=== PATIENT | female | born 2000 | race American Indian/Alaskan Native ===

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

== ENCOUNTER 2018-05-06 07:30 | Emergency (ER) | payer MEDICAID, OTHER ==
[2018-05-06] MEDS ORDERED: MVI, Adult with Vitamin K 10 ML, Folic Acid 1 MG, Thiamine 100 MG in Lactated Ringers 1... IV ONE ×4 (07:39)
[2018-05-06] MEDS ORDERED: Sodium Chloride 0.9% 10 ML Syringe FLUSH PRN (07:39)
[2018-05-06 07:41] VITALS: BP 138/90
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
[2018-05-06 08:20] LABS: ANION GAP 15.4; CHLORIDE,CL 103 mmol/L (101-111); SODIUM,NA 139 mmol/L (135-145)
== END 2018-05-06 09:51 ==
LOC: DL.ED 07:30
DX: S40.011A Contusion of right shoulder, initial encounter (principal); S40.021A Contusion of right upper arm, initial encounter; F10.129 Alcohol abuse with intoxication, unspecified; Y04.2XXA Assault by strike against or bumped into by another person, initial encounter
CPT/HCPCS: 36415; 70450; 80053; 80305; 81001; 81025; 85025; 96360; 99283; G0480; J3411; J7050; J7120; J3490

== ENCOUNTER 2020-10-11 00:33 | Inpatient (IN) | payer MEDICAID ==
[2020-10-11] MEDS ORDERED: Lactated Ringers 1,000 ML IV SCH (00:45)
[2020-10-11] MEDS: Oxytocin/Normal Saline 30 UNIT/500 ML BAG IV SCH ×2 (00:51→02:13)
[2020-10-11] MEDS ORDERED: Tranexamic Acid 1,000 MG in Sodium Chloride 0.9% 100 ML IV PRN (01:18)
[2020-10-11] MEDS ORDERED: Simethicone 80 MG Tab.Chew PO PRN (01:18)
[2020-10-11] MEDS ORDERED: Benzocaine/Menthol 20%-0.5% Spray 56 GM Canister TOP PRN (01:18)
[2020-10-11] MEDS ORDERED: Oxytocin 10 Units/1 ML SDV IM PRN (01:18)
[2020-10-11] MEDS ORDERED: Carboprost Tromethamine 250 MCG/1 ML Amp IM PRN (01:18)
[2020-10-11] MEDS ORDERED: Misoprostol 400 MCG (4 X 100 MCG TAB) RECTAL PRN (01:18)
[2020-10-11] MEDS ORDERED: Zolpidem 5 MG Tab PO PRN (01:18)
[2020-10-11] MEDS ORDERED: Sodium Chloride 0.9% 10 ML Syringe FLUSH PRN (01:18)
[2020-10-11] MEDS ORDERED: Oxytocin 10 Units/1 ML SDV ONE (01:25)
[2020-10-11] MEDS: Ibuprofen 800 MG Tab PO PRN ×2 (02:08→17:24)
[2020-10-11] MEDS: Ferrous Sulfate 325 MG Tab PO SCH (09:22)
[2020-10-11] MEDS: Docusate Sodium 100 MG Cap PO PRN ×2 (09:22→21:22)
[2020-10-11] MEDS: Prenatal Multivitamin with Calcium/Folic Acid/Iron Tab PO SCH (09:23)
[2020-10-11] MEDS: Acetaminophen 325 MG Tab PO PRN ×2 (09:23→21:22)
--- NOTE | 2020-10-11 12:33 | PN ---
DATE: 10/11/2020 day #0. SUBJECTIVE: Patient is tolerating p.o., was ambulating, urinating, passing flatus. States her bleeding has improved. She did receive a dose of Cytotec 800 mcg rectally shortly after delivery. Please see nurse's note in regard this. This was due to increased bleeding, since then bleeding has significantly decreased. OBJECTIVE: Vital Signs: Temperature 99, heart rate 100, blood pressure 122/79, and respiratory rate 18. Lungs: Clear to auscultation bilaterally. Heart: S1, S2. Regular rate and rhythm. Pelvic: Firm uterus felt at the umbilicus. No peripheral edema. No calf pain. LABORATORY DATA: Pending is a CBC. Urine drug screen returned earlier this morning, positive for amphetamine, methamphetamine, and THC. ASSESSMENT/PLAN: 1. day #0 status post spontaneous vaginal delivery that was precipitous in the ER. 2. Limited/insufficient care. 3. Positive chlamydia, treated on 09/30/2020. 4. History urinary tract infection in the , treated on 09/30/2020 with Keflex. 5. Impaired glucose tolerance. No signs and symptoms of diabetes at this point in time. 6. Positive urine drug screen for methamphetamine, amphetamine, and THC. PLAN: We will continue to follow clinically and closely at this point in time. Possible discharge tomorrow. Wet End Supervisor will be counseled. MODL /[id number]
[2020-10-12] MEDS: Ibuprofen 800 MG Tab PO PRN (07:23)
[2020-10-12] MEDS: Prenatal Multivitamin with Calcium/Folic Acid/Iron Tab PO SCH (07:24)
[2020-10-12] MEDS: Ferrous Sulfate 325 MG Tab PO SCH (07:24)
[2020-10-12 07:49] VITALS: BP 125/72; PULSE 65
--- NOTE | 2020-10-12 09:31 | HP ---
PATIENT IDENTIFICATION: Deisy Knutson a 20-year-old, -0-0-3, now - 0-0-4, came in, intrauterine at 37-5/7 weeks by 36-1/7 weeks with active labor and precipitous delivery noted in the ER by OB nurse. HISTORY OF PRESENT ILLNESS: The patient states on the late evening of 10/10/2020, a day prior to admission, around 7 p.m., she started having contractions that got stronger around 10 p.m. to 11 p.m., felt in the lower abdomen. Getting stronger, more frequent, and nothing seemed to make them better and pain made them worse. She is unsure when her water broke. She presented to the ER and was delivered by a nurse in the ER room with a vertex presentation with a loose nuchal cord noted. Upon my presentation to the hospital, the patient was being wheeled to the OB floor and subsequently delivery of placenta was done as below. The patient notes that she has not had much for care. She does state she is clean of drugs, however. Records were called for, reviewed as below, and supplemented by patient history. OBSTETRICAL HISTORY: 1. 01/02/2015, 38-3/7 weeks, delivered a male 7 pounds 2.5 ounces. 2. 01/18/2016, 40 weeks, delivered a male 7 pounds 14 ounces. Received iron transfusions during the . 3. 07/20/2017, 38-1/7 weeks, male, 6 pounds 12 ounces. Denies any complications. ANTEPARTUM LABORATORIES: ABO blood type is A positive, negative antibody. Rubella immune. RPR nonreactive. Negative hepatitis B surface antigen. Positive hep C antibody with negative quant RNA. Positive chlamydia. Negative gonorrhea. Negative HIV. A 1-hour GTT was listed as elevated at 241 per notes from S. GBS was obtained but not available from [facility] records that are available. In addition, she was treated for UTI with abnormal urinalysis with Keflex started on 09/30/2020. Urine drug screen at [facility] done on 09/04/2020 was negative. OB ultrasound done on 09/30 was notable for putting her at 36-1/7 weeks with a note that PARVEZ was 5.3 cm which was lower limit of normal, and due to position and gestational age, several anatomic structures could not be visualized well such as lateral ventricle cerebellum, cisterna magna, nose, lips, cord insertion, extremities, and 4-chamber heart was visualized with limited visualization with a questionable band of tissue in the right ventricle which may be artifactual, with an echocardiogram may be performed for additional imaging evaluation. The patient was attempted to be notified through [facility] and Dr. Valle's office once these records were made available. M consult/referral was placed; however, the patient was unable to make these appointments and did not show up for them. Of note, she did have clinic appointments within the last week that she no-showed in [facility] to Dr. Valle. ALLERGIES: None. MEDICATIONS: 1. vitamins. 2. Iron sulfate 325 b.i.d. 3. Keflex for potential UTI started 09/30/2020. 4. Tums as needed for heartburn. 5. The patient did receive Zithromax 1000 mg given in [facility] for positive chlamydia test on 09/30/2020. 6. Metronidazole 500 mg b.i.d. x7 days. PAST MEDICAL/PAST SURGICAL HISTORY: The patient denies any hospitalizations outside of having her children. She denies any surgeries at this point in time. SOCIAL HISTORY: The patient does smoke cigarettes at least a quarter to half a pack per day for many years. Denies any alcohol, other tobacco, or drug use. She is listed as single. Father of baby, Ferny Light, is not working. She does not know his medical or family history. They live together, and this is their first child together. He has 7 other children. Her youngest son lives with her. She states that all her children live with the father of her other children. FAMILY HISTORY: She denies any anesthesia, bleeding problems, or defects. There is some family history of diabetes mellitus type 2 in maternal grandmother. Multiple noted in the family history. No family history of clotting disorders. REVIEW OF SYSTEMS: The patient notes her vaginal bleeding. Otherwise, fully reviewed and felt to be noncontributory. OBJECTIVE: Vital Signs: To be updated and listed in [facility]. Initial blood pressure was 140s over 80s, but she was in pain at that time. Heart rate by central exam was between 80 and 90. Respiratory rate is between 12 and 16. Appearance: Female appears her stated age, wincing with cramping with delivering the placenta and then thereafter answering questions appropriately. HEENT: Head is atraumatic. EOMs intact. PERRLA. No scleral icterus. No obvious otorhinorrhea. Mucous membranes moist. Neck: No obvious tenderness. Lungs: Clear to auscultation bilaterally. No increased work of breathing. Heart: S1 and S2. Regular rhythm. Abdomen: Firm uterus. -1 below umbilicus. Genitourinary: Umbilical cord seen clamped, coming from the vaginal orifice. This was subsequently grasped, and with gentle pulling on the cord and fundal pressure and massage, placenta was delivered followed by approximately over 750 mL of clot with noted over 300 mL of blood loss with shortly thereafter delivery of baby. Extremities: No peripheral edema. Deep tendon reflexes 3 to 4 out of 5 bilaterally and symmetric in the lower extremities. Mild bruising, left lateral ankle portion, and sore on the bottom of left foot, the patient states that she got from falling within the last week. Neurologic: Mood and affect congruent. Judgment and insight intact. Skin: Without cyanosis, clubbing, or jaundice. Unable to do heart tones as she delivered before we had a monitor available. IV was started in the ER, and upon presentation to the OB floor, on my arrival, 10 units of Pitocin was given IM followed by 1 g of TXA and Pitocin per protocol. PENDING INVESTIGATIONS: Include a rapid COVID test, CBC, and urine drug screen. ASSESSMENT/PLAN: 1. Intrauterine at 37-5/7 weeks by 36-1/7-week ultrasound. 2. Precipitous delivery in the emergency room with delivery done by obstetrical nurse and placenta delivered by Dr. Valle as above. 3. hemorrhage with an estimated blood loss of 1000 mL. 4. Anemia of with hemoglobin 10.7 at [facility] earlier on 10/05/2020, CBC pending. 5. Group B Streptococcus unknown was drawn but unable to obtain records from [facility] as it is the weekend and after-hours. 6. Limited/insufficient care. 7. Ultrasound on 09/30/2020 noting near oligohydramnios, unable to visualize fully multiple structures, and a questionable right ventricular band versus artifact in the heart. 8. Hepatitis C antibody positive with quant RNA being negative. 9. Positive chlamydia treated on 09/30/2020. 10.Impaired glucose tolerance. We will do blood sugar of mother and baby. 11.Urinary tract infection suspected in , start on Keflex 09/30/2020. 12.Loose nuchal cord noted with delivery. 13.Left ankle bruise and minor swelling with lesion on the bottom of the foot. We will watch closely. Stabilize her at this point in time. May consider in the morning further evaluation and management if need be. PLAN: The patient will be admitted. Urine drug screen will be drawn. CBC will be drawn. Treatment as above for hemorrhage. We will do a sugar on her as well, and continue to follow clinically and closely. The patient understands and agrees with above treatment plan. I did discuss with her that at current time of dictation her baby is stable, doing well in the nursery. No murmurs were noted, and we will continue to follow clinically and closely and also do a chest x-ray on her baby to look for any issues, potentially cardiopulmonary magallon, with the above findings on the ultrasound which in my suspicion may be more artifactual in nature. [facility] /[id number] MTDD
--- NOTE | 2020-10-12 14:31 | DISCH ---
ADMITTING DIAGNOSES: 1. Intrauterine at 37 and 5/7 weeks by 36 and 1/7 week ultrasound. 2. Precipitous delivery in the emergency room. 3. Limited/insufficient care. 4. Ultrasound on 09/30, 36 and 1/7 weeks, limited visualization of structures with questionable band in the right ventricle versus artifact with near oligohydramnios and I suspect artifact as baby is doing well. 5. Hep C antibody positive with negative quant RNA. 6. Chlamydia treated on 09/30/2020. 7. Urinary tract infection in the . Treated with Keflex on 09/30/2020. 8. Impaired glucose tolerance. 9. Positive urine drug screen for methamphetamines, amphetamine, and THC. 10.Left ankle bruise noted upon admission. The patient is stating she sprained her ankle. 11.Anemia with hemoglobin 11.3 upon admission. 12.GBS obtained but unknown as at [facility] and records unavailable. DISCHARGE DIAGNOSES: 1. Intrauterine at 37 and 5/7 weeks by 36 and 1/7 week ultrasound. 2. Precipitous delivery in the emergency room. 3. Limited/insufficient care. 4. Ultrasound on 09/30, 36 and 1/7 weeks, limited visualization of structures with questionable band in the right ventricle versus artifact with near oligohydramnios and I suspect artifact as baby is doing well. 5. Hep C antibody positive with negative quant RNA. 6. Chlamydia treated on 09/30/2020. 7. Urinary tract infection in the . Treated with Keflex on 09/30/2020. 8. Impaired glucose tolerance. 9. Positive urine drug screen for methamphetamines, amphetamine, and THC. 10.Left ankle bruise noted upon admission. The patient is stating she sprained her ankle. 11.Anemia with hemoglobin 11.3 upon admission. 12.GBS obtained but unknown as at [facility] and records unavailable. 13. hemorrhage with an EBL of 1000 mL requiring Cytotec 800 mcg rectally. HISTORY OF PRESENT ILLNESS: Please see H and P. SUMMARY OF HOSPITAL COURSE: The patient was admitted on the above date with the above diagnosis, delivered precipitously in the emergency room. Dr. Valle was present for delivery of placenta shortly thereafter, which yielded a female with score of 7 and 9, weighing 7 pounds 5 ounces (3320 g). hemorrhage was noted with about approximately EBL of 1000 mL. Cytotec was given and bleeding decreased. Please see other notes for further details. The patient did deliver shortly after midnight. On date of discharge, the patient was tolerating p.o., ambulating, urinating, passing flatus, requesting discharge. No symptoms of anemia noted. White cell count 8.4, hemoglobin 10.1 compared to predelivery hemoglobin of 11.3, platelets 279. CBC done same day of delivery later at least 6 hours after delivery revealed the above. Urine drug screen positive for methamphetamine, amphetamine, and marijuana. DISCHARGE EVALUATION: Vital Signs: Temperature 98.4, heart rate 65, blood pressure 125/72, respiratory rate 18. Lungs: Clear to auscultation bilaterally. Heart: S1, S2. Regular rate and rhythm. Abdomen: Firm uterus. -1 below umbilicus. Extremities: No peripheral edema. No calf pain. CONDITION ON DISCHARGE COMPARED TO CONDITION ON ADMISSION: Improved. DISCHARGE MEDICATIONS: [id number] Tylenol and ibuprofen for pain. She has iron sulfate at home and will take it twice a day as well as vitamins for 6 weeks. FOLLOWUP: 6 weeks . Wishes to follow up by the S and will call for an appointment. Reasons to return or go to the emergency room were discussed with the patient in detail including but not limited to temperature greater than 100.4, foul- smelling discharge, red hot tender breasts, or increased vaginal bleeding. DISCHARGE INSTRUCTIONS: No lifting more than 20 pounds. No sit-ups or straining and pelvic rest for the next 6 weeks with immediate return to fertility discussed with the patient. DISCHARGE PLAN: Please see orders for further details as well. Of note, Clamp Remover was involved and the patient wishes to be discharged today. Baby will be staying and most likely discharged to Clamp Remover in the future. [facility] /[id number]
== END 2020-10-12 11:50 | disposition home or self-care (01) | DRG 806 ==
LOC: DL.OBCHECK 00:33 → OBSVTOIN 00:34 → DL.OB 00:34 → UNDOADMOB 01:10 → DL.OB 01:10
PROVIDERS: ADMIT Family Medicine; ATTEND Family Medicine
PROC: 10E0XZZ Delivery of Products of Conception, External Approach (ICD-10-PCS; principal; 2020-10-11)
DX: O62.3 Precipitate labor (principal); O72.1 Other immediate postpartum hemorrhage; Z3A.37 37 weeks gestation of pregnancy; Z37.0 Single live birth; O98.42 Viral hepatitis complicating childbirth; O41.03X0 Oligohydramnios, third trimester, not applicable or unspecified; B19.20 Unspecified viral hepatitis C without hepatic coma; F15.90 Other stimulant use, unspecified, uncomplicated; D64.9 Anemia, unspecified; Z20.828 Contact with and (suspected) exposure to other viral communicable diseases; S90.02XA Contusion of left ankle, initial encounter; X58.XXXA Exposure to other specified factors, initial encounter; Y92.89 Other specified places as the place of occurrence of the external cause; O99.02 Anemia complicating childbirth
CPT/HCPCS: 36415; 59409; 80305-QW; 82962; 85027; A9270-GY; J2590; J7120; U0002

== ENCOUNTER 2021-09-25 08:13 | Inpatient (IN) | payer MEDICAID ==
[2021-09-25] MEDS ORDERED: Ondansetron 4 MG/2 ML SDV IVPUSH PRN (08:47)
[2021-09-25] MEDS ORDERED: Penicillin G Potassium 5 MILLUNITS in Sodium Chloride 0.9% 100 ML IV ONE (08:47)
[2021-09-25] MEDS ORDERED: Lactated Ringers 1,000 ML IV ONE (08:47)
[2021-09-25] MEDS ORDERED: Tranexamic Acid 1,000 MG in Sodium Chloride 0.9% 100 ML IV PRN (08:47)
[2021-09-25] MEDS ORDERED: Lidocaine 1% 30 ML SDV INJECT PRN (08:47)
[2021-09-25] MEDS ORDERED: Carboprost Tromethamine 250 MCG/1 ML Amp IM PRN (08:47)
[2021-09-25] MEDS ORDERED: Sodium Chloride 0.9% 10 ML Syringe FLUSH PRN (08:47)
[2021-09-25] MEDS ORDERED: Methylergonovine 0.2 MG/1 ML Amp IM PRN (08:47)
[2021-09-25] MEDS ORDERED: Misoprostol 400 MCG (4 X 100 MCG TAB) RECTAL PRN (08:47)
[2021-09-25] MEDS ORDERED: Oxytocin/Normal Saline 30 UNIT/500 ML BAG IV SCH ×2 (09:00)
[2021-09-25] MEDS: Lactated Ringers 1,000 ML IV SCH ×3 (09:37→20:07)
[2021-09-25 11:56] LABS: AMPHETAMINES,URINE NEGATIVE (NEGATIVE); BARBITURATES,URINE NEGATIVE (NEGATIVE); BENZODIAZEPINE,URINE NEGATIVE (NEGATIVE); MDMA (ECSTASY), URINE POSITIVE (NEGATIVE); METHADONE,URINE NEGATIVE (NEGATIVE); METHAMPHETAMINES,URINE NEGATIVE (NEGATIVE); OPIATES,URINE NEGATIVE (NEGATIVE); OXYCODONE,URINE NEGATIVE (NEGATIVE); PHENCYCLIDINE,URINE NEGATIVE (NEGATIVE); TCA,URINE NEGATIVE (NEGATIVE)
--- NOTE | 2021-09-25 12:30 | PCM.PNLD ---
<Talisha Noland - Last Filed: 09/25/21 12:25> Labor Progress Note - VS & Meds Active Medications: Current Medications Acetaminophen (Acetaminophen 325 Mg Tab) 650 mg PO Q4H PRN PRN Reason: Pain (Mild 1-3) and fever Carboprost Tromethamine (Carboprost Tromethamine 250 Mcg/1 Ml Amp) 250 mcg IM ASDIRECTED PRN PRN Reason: HEMORRHAGE Tranexamic Acid 1,000 mg/ (Sodium Chloride) 110 mls @ 660 mls/hr IV ONETIME PRN PRN Reason: Bleeding Oxytocin/Sodium Chloride (Pitocin In Ns 30 Unit/500 Ml) 30 unit in 500 mls @ 2 mls/hr IV TITRATE TD; Protocol Oxytocin/Sodium Chloride (Pitocin In Ns 30 Unit/500 Ml) 30 unit in 500 mls @ 2 mls/hr IV TITRATE TD; Protocol Penicillin G Potassium 3 (millunits/ Sodium Chloride) 100 mls @ 200 mls/hr IV Q4H TD Lactated Ringer's (Ringers, Lactated) 1,000 mls @ 125 mls/hr IV ASDIRECTED TD Last Admin: 09/25/21 09:37 Dose: 125 mls/hr Documented by: Lidocaine HCl (Lidocaine 1% 30 Ml Sdv) 30 ml INJECT ASDIRECTED PRN PRN Reason: Perineal Repair Methylergonovine Maleate (Methylergonovine 0.2 Mg/1 Ml Amp) 0.2 mg IM ASDIRECTED PRN PRN Reason: Hemorrhage Misoprostol (Misoprostol 400 Mcg (4 X 100 Mcg Tab)) 800 mcg RECTAL ASDIRECTED PRN PRN Reason: Hemorrhage Ondansetron HCl (Ondansetron 4 Mg/2 Ml Sdv) 4 mg IVPUSH Q4H PRN PRN Reason: Nausea/Vomiting Sodium Chloride (Sodium Chloride 0.9% 10 Ml Syringe) 10 ml FLUSH ASDIRECTED PRN PRN Reason: Keep Vein Open Discontinued Medications Penicillin G Potassium 5 (millunits/ Sodium Chloride) 100 mls @ 200 mls/hr IV ONETIME ONE Stop: 09/25/21 09:16 Last Admin: 09/25/21 09:37 Dose: 200 mls/hr Documented by: Lactated Ringer's (Ringers, Lactated) 1,000 mls @ 999 mls/hr IV BOLUS ONE Stop: 09/25/21 09:47 - Uterine Contractions Contraction Frequency (min): Irregular Contraction Duration (sec): 45sec - 1 min Contraction Intensity: Mild - Monitoring Monitor Mode: External Ultrasound Heart Rate (FHR) Variability: Moderate (6-25 bpm) Accelerations: Present, 15x15 Strip Review: Category I - Vaginal Exam Dilation (cm): 1 Effacement (Percent): 20 Station: -3 Cervical Position: Posterior Sterile Vaginal Exam Performed By: Talisha Noland - Labor Progress (Free Text) Labor Progress: Pitocin started 11:30AM, current rate at 4. Contractions seen on Albia. Patient eating, feels mild contractions. Sister present in room. A/P 1. IUP at 39w0d 2. [21yo] 3. GBS pending, Penicillin running 4. Less than 5 visits 5. Hep C ab positive, viral load ordered 6. Borderline Glutose Tolerance 7. A positive, Antibody negative, Rubella immune 8. Anemia of [Hgb 9.5, Plt 372] <Amber Clifton - Last Filed: 09/25/21 14:17> Labor Progress Note - VS & Meds Active Medications: Current Medications Acetaminophen (Acetaminophen 325 Mg Tab) 650 mg PO Q4H PRN PRN Reason: Pain (Mild 1-3) and fever Carboprost Tromethamine (Carboprost Tromethamine 250 Mcg/1 Ml Amp) 250 mcg IM ASDIRECTED PRN PRN Reason: HEMORRHAGE Tranexamic Acid 1,000 mg/ (Sodium Chloride) 110 mls @ 660 mls/hr IV ONETIME PRN PRN Reason: Bleeding Oxytocin/Sodium Chloride (Pitocin In Ns 30 Unit/500 Ml) 30 unit in 500 mls @ 2 mls/hr IV TITRATE TD; Protocol Last Admin: 09/25/21 11:25 Dose: 2 munits/min, 2 mls/hr Documented by: Oxytocin/Sodium Chloride (Pitocin In Ns 30 Unit/500 Ml) 30 unit in 500 mls @ 2 mls/hr IV TITRATE TD; Protocol Penicillin G Potassium 3 (millunits/ Sodium Chloride) 100 mls @ 200 mls/hr IV Q4H TD Last Admin: 09/25/21 13:01 Dose: 200 mls/hr Documented by: Lactated Ringer's (Ringers, Lactated) 1,000 mls @ 125 mls/hr IV ASDIRECTED TD Last Admin: 09/25/21 09:37 Dose: 125 mls/hr Documented by: Lidocaine HCl (Lidocaine 1% 30 Ml Sdv) 30 ml INJECT ASDIRECTED PRN PRN Reason: Perineal Repair Methylergonovine Maleate (Methylergonovine 0.2 Mg/1 Ml Amp) 0.2 mg IM ASDIRECTED PRN PRN Reason: Hemorrhage Misoprostol (Misoprostol 400 Mcg (4 X 100 Mcg Tab)) 800 mcg RECTAL ASDIRECTED PRN PRN Reason: Hemorrhage Ondansetron HCl (Ondansetron 4 Mg/2 Ml Sdv) 4 mg IVPUSH Q4H PRN PRN Reason: Nausea/Vomiting Sodium Chloride (Sodium Chloride 0.9% 10 Ml Syringe) 10 ml FLUSH ASDIRECTED PRN PRN Reason: Keep Vein Open Discontinued Medications Penicillin G Potassium 5 (millunits/ Sodium Chloride) 100 mls @ 200 mls/hr IV ONETIME ONE Stop: 09/25/21 09:16 Last Admin: 09/25/21 09:37 Dose: 200 mls/hr Documented by: Lactated Ringer's (Ringers, Lactated) 1,000 mls @ 999 mls/hr IV BOLUS ONE Stop: 09/25/21 09:47 - Labor Progress (Free Text) Labor Progress: Agree with resident's assessment and plan. Amber Clifton MD
[2021-09-25] MEDS: Penicillin G Potassium 3 MILLUNITS in Sodium Chloride 0.9% 100 ML IV SCH ×2 (13:01→17:18)
[2021-09-25] MEDS ORDERED: fentaNYL 100 MCG/2 ML SDV ITHECAL ONE (18:15)
[2021-09-25] MEDS ORDERED: EPINEPHrine 1 MG/ML SDV ONE ×2 (18:15→18:17)
[2021-09-25] MEDS ORDERED: fentaNYL 100 MCG/2 ML SDV ONE (18:17)
--- NOTE | 2021-09-25 19:02 | PCM.PRNOTE ---
- Free Text/Narrative Note: Requested to provide analgesia to full term patient in severe pain. Upon entering the room, patient is sitting on edge of bed complaining of severe abdominal/pelvic pain and discomfort. Procedure was discussed with patient including adverse outcomes and expectations. Pt consented to analgesia, SAB/IT. Pt placed into a proper sitting position. Landmarks for SAB/IT were identified and marked. Hands were washed and appropriate PPE was applied. Back was prepped with betadine x3. A sterile, transparent, fenestrated drape was applied. Excess betadine was removed. Using 3 mL of a 1% lidocaine solution, a skin wheel was placed at the L3/L4 interspace. A 24 ga (4 inch) Pencan spinal needle was inserted until positive for CSF. Negative for heme or paresthesias. Injected fentanyl 10 mcg, sufentanil 15 mcg, and 6 mg of a 0.75% bupivacaine solution with an epi wash. Pt was placed left lateral tilt position for approximately 20 minutes. There were zero complications or adverse outcomes. Will continue to monitor. Procedure Date & Time: 09/25/21 [id number]
[2021-09-25] MEDS ORDERED: Benzocaine/Menthol 20%-0.5% Spray 78 GM Cannister TOP PRN (20:40)
[2021-09-25] MEDS ORDERED: Simethicone 80 MG Tab.Chew PO PRN (20:40)
[2021-09-25] MEDS ORDERED: Oxytocin 10 Units/1 ML SDV IM PRN (20:40)
[2021-09-26] MEDS: Ibuprofen 800 MG Tab PO PRN ×3 (01:28→18:23)
[2021-09-26] MEDS: Docusate Sodium 100 MG Cap PO PRN (09:26)
[2021-09-26] MEDS: Prenatal Multivitamin with Calcium/Folic Acid/Iron Tab PO SCH (09:26)
--- NOTE | 2021-09-26 11:29 | PN ---
DATE: 09/26/2021 Status post day #1 of spontaneous vaginal delivery. SUBJECTIVE: The patient is tolerating p.o., ambulating, urinating, and passing gas. Bleeding and pain are under control per patient report. The patient also denies any preeclamptic symptoms; swelling, erythema, or tenderness of extremities; chest pain; or shortness of breath. OBJECTIVE: Vital Signs: Temp 97.9 degrees Fahrenheit, pulse 73, blood pressure 119/84, respiratory rate 20, O2 sat 99 on room air. Abdomen: Firm, nontender uterus at the umbilicus. Extremities: Mild edema without erythema or tenderness noted. LABORATORY DATA: Hemoglobin 8.6, platelets 293 compared to pre-admission hemoglobin of 9.5 and platelets of 372. ASSESSMENT: 1. Status post day #1 of spontaneous vaginal delivery at 39 and 0 weeks' gestation. 2. Anemia of acute blood loss secondary to above. 3. G5, P5-0-0-5. Rubella immune. GBS positive adequately treated. Blood type A positive. 4. Hepatitis C antibody positive, viral load pending. 5. Borderline glucose tolerance. 6. Minimal care. PLAN: We will continue to follow clinically and closely. The patient is doing well, since delivery. We will start iron supplementation due to acute blood loss anemia. However, the patient is currently asymptomatic. Continue routine cares and plan for discharge tomorrow morning. Patient was seen by myself and Dr. Dave. Assessment and plan are under advisement of Dr. Dave. [facility] /[id number] [facility]
--- NOTE | 2021-09-26 12:21 | DEL ---
DATE: 09/25/2021 PREOPERATIVE DIAGNOSES: 1. Intrauterine at 39 weeks 0 day gestation. 2. G5, P4-0-0-4. 3. Group B Streptococcus pending. 4. Minimal care. 5. Hepatitis C antibody positive. Viral load pending. 6. Borderline glucose tolerance. 7. A positive, antibody negative, rubella immune. 8. Anemia of . Hemoglobin of 9.5, platelets 372. POSTOPERATIVE DIAGNOSES: 1. Intrauterine at 39 weeks 0 day gestation. 2. G5, now P5-0-0-5. 3. Nuchal cord x1 reduced bluntly. 4. Group B Streptococcus negative, adequately treated due to unknown status on admission. 5. Minimal care. 6. Hepatitis C antibody positive. Viral load pending. 7. Borderline glucose tolerance. 8. A positive, antibody negative, rubella immune. 9. Anemia of . Hemoglobin of 9.5, platelets 372. PROCEDURES PERFORMED: 1. Artificial rupture of membranes. 2. Pitocin augmentation followed by spontaneous vaginal delivery without laceration. ANESTHESIA/ANALGESIA: The patient received 1 intrathecal in first stage of labor. ESTIMATED BLOOD LOSS: 350 mL. FINDINGS: Female, score 9 and 9. Weight 7 pounds 6 ounces, 3390 g with nuchal cord x1 reduced bluntly at delivery. SUMMARY OF EVENTS: The patient is a 21-year-old G5, now P5-0-0-5 female at 39 and 0 week gestation, who came to clinic yesterday for her first visit. She had very minimal care, and due to history of precipitous deliveries and unknown GBS status, she was sent for induction the following day. Today, she presented and received 4 doses of penicillin before starting oxytocin augmentation to soften her cervix. She then underwent artificial rupture of membranes and intrathecal anesthesia. She proceeded to progress from 4 cm to complete within 2 hours. At that time, myself and Dr. Dave were called to the room and donned sterile gown and gloves with the patient in the lithotomy position. The patient then pushed once and the baby was delivered in VALERIO position with nuchal cord x1 that was reduced bluntly at delivery followed with anterior and posterior shoulders as well as rest of without difficulty. Baby was immediately placed on mother's abdomen. Mouth and nares were suctioned. Cord was triple clamped and cut. Approximately 10 mL of cord blood was obtained for labs. Vaginal valentino, perineum, and urethra were then checked for trauma revealing no lacerations. Placenta was delivered with gentle cord traction and fundal massage within 5 to 10 minutes. Minimal bleeding was noted vaginally. Fundal massage ensued showing firm uterus. Due to continued vaginal bleeding despite firm uterus and history of blood transfusion in , 1 g of TXA was given. Bleeding slowly decreased thereafter. Mother and infant are currently stable at time of dictation. Pt was seen by myself and Dr. Dave. All procedures were under the direct advisement of Dr. Dave [facility] /[id number] [facility]
[2021-09-26] MEDS: Ferrous Sulfate 325 MG Tab PO SCH (13:03)
[2021-09-26] MEDS: Acetaminophen 325 MG Tab PO PRN (18:22)
[2021-09-27] MEDS: Acetaminophen 325 MG Tab PO PRN ×2 (01:34→09:09)
[2021-09-27] MEDS: Ibuprofen 800 MG Tab PO PRN ×2 (01:35→09:10)
[2021-09-27] MEDS: Docusate Sodium 100 MG Cap PO PRN (09:10)
[2021-09-27] MEDS: Prenatal Multivitamin with Calcium/Folic Acid/Iron Tab PO SCH (09:10)
[2021-09-27] MEDS: Ferrous Sulfate 325 MG Tab PO SCH (09:11)
[2021-09-27 09:57] VITALS: BP 127/78; PULSE 95
--- NOTE | 2021-09-27 13:20 | DISCH ---
ADMITTING DIAGNOSES: 1. Intrauterine at 39 weeks and 0 days' gestation. 2. G5, P4-0-0-4. 3. Group B Streptococcus pending. 4. Minimal care. 5. Hepatitis C antibody positive. Viral load pending. 6. Borderline glucose tolerance. 7. A-positive, antibody negative, rubella immune. 8. Anemia of , hemoglobin 9.5, platelets 372. DISCHARGE DIAGNOSES: 1. Intrauterine at 39 weeks and 0 days' gestation status post spontaneous vaginal delivery under intrathecal anesthesia. 2. G5, now P5-0-0-5. 3. Group B Streptococcus negative, adequately treated with penicillin due to unknown status at delivery. 4. Minimal care. 5. Hepatitis C antibody positive. Viral load pending. 6. Borderline glucose tolerance. 7. A-positive, antibody negative, rubella immune. 8. Anemia of , hemoglobin 9.5, platelets 372. PROCEDURES PERFORMED: 1. Artificial rupture of membranes. 2. Spontaneous vaginal delivery without complications or repair under intrathecal anesthesia. BRIEF HISTORY: A 21-year-old, G5, now P5-0-0-5 female at 39 and 0 weeks' gestation, came to clinic for first visit due to history of precipitous deliveries and unknown GBS status. She was sent for induction the following day for which she received 4 doses of penicillin before starting oxytocin augmentation to soften her cervix. She then underwent artificial rupture of membranes and intrathecal anesthesia. Baby then was delivered with 1 contraction with nuchal cord x1 reduced bluntly at . Baby and mother did well directly after delivery producing a female, score of 9 and 9. weight of 3340 g. HOSPITAL COURSE: has been good. Mother reports decreased bleeding and mild complaint of constipation for which she is receiving stool softeners. She was tolerating p.o. well and ambulating without complications. She denies any chest pain, shortness of breath, or preeclampsia symptoms. No current signs or concerns for infection, hemorrhage, or other complications. Mother is ready to be discharged home today with baby. DISCHARGE CONDITION: Good. PHYSICAL EXAMINATION: Vital Signs: Temperature of 97.2, pulse 95, blood pressure 127/78, respiratory rate 14. Heart: Regular without obvious murmur. Lungs: Clear to auscultation bilaterally. Abdomen: Soft, nontender. Fundus firm below umbilicus. Extremities: No edema, erythema, or tenderness noted. LABORATORY DATA: Pre-admission hemoglobin 9.5, platelets 372. Discharge hemoglobin 8.6, platelets 293. DISPOSITION: Home with family. MEDICATIONS: [id number] Tylenol, ibuprofen as needed for pain. Continue vitamin once daily. Additionally, add iron 325 mg twice daily. FOLLOWUP: The patient will be seen in clinic on 09/28/[address] at [address] Clifton for first visit. INSTRUCTIONS: Routine post vaginal delivery instructions were provided and all questions answered. The patient was seen by myself and Dr. Dave. Assessment and plan are under advisement of Dr. Dave. [facility] /[id number] MTDD
== END 2021-09-27 12:25 | disposition home or self-care (01) | DRG 806 ==
LOC: DL.OBCHECK 08:13 → DL.OB 08:48 → OBSVTOIN 20:16
PROVIDERS: ADMIT Family Medicine; ATTEND Family Medicine
PROC: 10E0XZZ Delivery of Products of Conception, External Approach (ICD-10-PCS; principal; 2021-09-25)
PROC: 10907ZC Drainage of Amniotic Fluid, Therapeutic from Products of Conception, Via Natural or Artificial Opening (ICD-10-PCS; 2021-09-25)
PROC: 00HU33Z Insertion of Infusion Device into Spinal Canal, Percutaneous Approach (ICD-10-PCS; 2021-09-25)
PROC: 3E0R3BZ Introduction of Anesthetic Agent into Spinal Canal, Percutaneous Approach (ICD-10-PCS; 2021-09-25)
DX: O99.02 Anemia complicating childbirth (principal); O98.52 Other viral diseases complicating childbirth; Z37.0 Single live birth; D62 Acute posthemorrhagic anemia; Z3A.39 39 weeks gestation of pregnancy; B19.20 Unspecified viral hepatitis C without hepatic coma; Z20.822 Contact with and (suspected) exposure to COVID-19
CPT/HCPCS: 01967; 36415; 59409; 80305-QW; 85027; 86592; 86803; 86850; 86900; 86901; A9270-GY; J0171; J2405; J2540; J2590; J3010; J7120; U0002

== ENCOUNTER 2023-07-18 00:12 | Emergency (ER) | payer MEDICAID ==
[2023-07-18 00:32] VITALS: BP 113/82; PULSE 106
[2023-07-18] MEDS ORDERED: Ibuprofen 400 MG Tab PO ONE (00:46)
[2023-07-18 01:03] LABS: AMPHETAMINES,URINE POSITIVE (NEGATIVE); BARBITURATES,URINE NEGATIVE (NEGATIVE); BENZODIAZEPINE,URINE NEGATIVE (NEGATIVE); MDMA (ECSTASY), URINE NEGATIVE (NEGATIVE); METHADONE,URINE NEGATIVE (NEGATIVE); METHAMPHETAMINES,URINE POSITIVE (NEGATIVE); OPIATES,URINE NEGATIVE (NEGATIVE); OXYCODONE,URINE NEGATIVE (NEGATIVE); PHENCYCLIDINE,URINE NEGATIVE (NEGATIVE); TCA,URINE NEGATIVE (NEGATIVE)
[2023-07-18 01:20] LABS: BASOPHILS PERCENT AUTO 0.5 % (0.0-1.0); EOSINOPHILS PERCENT AUTO 1.2 % (1.0-3.0); HEMATOCRIT 34.5 % (37.0-47.0); LYMPHOCYTES PERCENT AUTO 13.5 % (20.5-50.1); MEAN CORPUSCULAR HEMOGLOBIN 23.5 pg (27.0-34.0); MEAN CORPUSCULAR HGB CONC 31.9 g/dL (33.0-35.0); MEAN CORPUSCULAR VOLUME 73.6 fL (80-100); MONOCYTES PERCENT AUTO 5.3 % (2-8); NEUTROPHILS PERCENT AUTO 79.5 % (42.2-75.2); PLATELET COUNT,PLT 451 10^3/uL (150-450); RED BLOOD CELL COUNT 4.69 10^6/uL (4.2-5.4); WHITE BLOOD CELL COUNT,WBC 9.1 10^3/uL (5.0-10.0)
[2023-07-18 01:32] LABS: APPEARANCE,URINE SLIGHTLY CLOUDY (CLEAR); BILIRUBIN,URINE NEGATIVE (NEGATIVE); COLOR,URINE YELLOW (YELLOW); GLUCOSE,URINE NEGATIVE (NEGATIVE); KETONES,URINE TRACE (NEGATIVE); LEUKOCYTE ESTERASE,URINE SMALL (NEGATIVE); NITRITE,URINE POSITIVE (NEGATIVE); OCCULT BLOOD,URINE LARGE (NEGATIVE); PROTEIN,URINE TRACE (NEGATIVE); UROBILINOGEN,URINE 0.2 mg/dL (0.2-1.0)
[2023-07-18 01:36] LABS: BACTERIA,URINE MODERATE /HPF (0-FEW/HPF); EPITHELIAL CELLS,URINE FEW /HPF (NOT SEEN); WBC,URINE 0-5 /HPF (0-5/HPF)
[2023-07-18 01:38] LABS: ALBUMIN 4.1 g/dL (3.4-5.0); ANION GAP 17.4 mEq/L (7-13); BLOOD UREA NITROGEN,BUN 20 mg/dL (7-18); CALCIUM 8.9 mg/dL (8.5-10.1); CARBON DIOXIDE,CO2 23 mmol/L (21-32); CHLORIDE,CL 103 mmol/L (98-107); EST CRCL DRUG DOSING (CG) 68.02 mL/min; GLUCOSE RANDOM 81 mg/dL (70-99); POTASSIUM,K 3.4 mmol/L (3.5-5.1); PROTEIN TOTAL,TP 8.3 g/dL (6.4-8.2); SODIUM,NA 140 mmol/L (136-145)
[2023-07-18 01:39] LABS: ALANINE AMINOTRANSFERASE,ALT 14 U/L (14-59); ALKALINE PHOSPHATASE 117 U/L (46-116); ASPARTATE AMNIOTRANSFERASE,AST 16 U/L (15-37); BILIRUBIN TOTAL 0.5 mg/dL (0.2-1.0); ESTIMATED GFR 80 mL/min (>=60)
[2023-07-18 01:40] LABS: ETHANOL BLOOD MEDICAL < 3 mg/dL (0); HCG QUALITATIVE,SERUM NEGATIVE (NEGATIVE)
== END 2023-07-18 01:40 | disposition home or self-care (01) ==
LOC: DL.ED 00:12
DX: S00.33XA Contusion of nose, initial encounter (principal); S05.12XA Contusion of eyeball and orbital tissues, left eye, initial encounter; F15.10 Other stimulant abuse, uncomplicated; F12.90 Cannabis use, unspecified, uncomplicated; D50.9 Iron deficiency anemia, unspecified; N76.0 Acute vaginitis; E87.6 Hypokalemia; N39.0 Urinary tract infection, site not specified; F17.210 Nicotine dependence, cigarettes, uncomplicated; Y09 Assault by unspecified means
CPT/HCPCS: 36415; 70160; 80053; 80305-QW; 80307; 81001; 84703; 85025; 87086; 99284; A9270-GY

== ENCOUNTER 2023-09-10 16:18 | Emergency (ER) | payer MEDICAID, OTHER ==
[2023-09-10] MEDS ORDERED: Sodium Chloride 0.9% 10 ML Syringe FLUSH PRN (16:29)
[2023-09-10] MEDS ORDERED: Naloxone 2 MG/2 ML Syringe IVPUSH ONE (16:30)
[2023-09-10] MEDS ORDERED: Sodium Chloride 0.9% 1,000 ML IV ONE (16:31)
[2023-09-10] MEDS ORDERED: Ondansetron 4 MG/2 ML SDV IV ONE (16:35)
[2023-09-10 16:46] LABS: BASOPHILS PERCENT AUTO 0.4 % (0.0-1.0); EOSINOPHILS PERCENT AUTO 5.1 % (1.0-3.0); HEMATOCRIT 37.8 % (37.0-47.0); HEMOGLOBIN 13.1 g/dL (12.0-16.0); LYMPHOCYTES PERCENT AUTO 22.5 % (20.5-50.1); MEAN CORPUSCULAR HEMOGLOBIN 26.2 pg (27.0-34.0); MEAN CORPUSCULAR HGB CONC 34.7 g/dL (33.0-35.0); MEAN CORPUSCULAR VOLUME 75.6 fL (80-100); MONOCYTES PERCENT AUTO 6.3 % (2-8); NEUTROPHILS PERCENT AUTO 65.7 % (42.2-75.2); PLATELET COUNT,PLT 441 10^3/uL (150-450); WHITE BLOOD CELL COUNT,WBC 7.5 10^3/uL (5.0-10.0)
[2023-09-10 16:48] LABS: APPEARANCE,URINE CLOUDY (CLEAR); BILIRUBIN,URINE NEGATIVE (NEGATIVE); COLOR,URINE YELLOW (YELLOW); GLUCOSE,URINE NEGATIVE (NEGATIVE); KETONES,URINE NEGATIVE (NEGATIVE); LEUKOCYTE ESTERASE,URINE MODERATE (NEGATIVE); NITRITE,URINE POSITIVE (NEGATIVE); OCCULT BLOOD,URINE TRACE-INTACT (NEGATIVE); PROTEIN,URINE NEGATIVE (NEGATIVE); UROBILINOGEN,URINE 0.2 mg/dL (0.2-1.0)
[2023-09-10 16:54] LABS: AMPHETAMINES,URINE POSITIVE (NEGATIVE); BARBITURATES,URINE NEGATIVE (NEGATIVE); BENZODIAZEPINE,URINE NEGATIVE (NEGATIVE); MDMA (ECSTASY), URINE POSITIVE (NEGATIVE); METHADONE,URINE NEGATIVE (NEGATIVE); METHAMPHETAMINES,URINE POSITIVE (NEGATIVE); OPIATES,URINE NEGATIVE (NEGATIVE); OXYCODONE,URINE NEGATIVE (NEGATIVE); PHENCYCLIDINE,URINE NEGATIVE (NEGATIVE); TCA,URINE NEGATIVE (NEGATIVE)
[2023-09-10 16:57] LABS: AMORPHOUS SEDIMENT,URINE FEW /HPF (NOT SEEN); BACTERIA,URINE MANY /HPF (0-FEW/HPF); EPITHELIAL CELLS,URINE FEW /HPF (NOT SEEN); MUCUS,URINE FEW /LPF (NOT SEEN); RBC,URINE 0-5 /HPF (0-5); WBC,URINE SEMI-PACKED /HPF (0-5/HPF)
[2023-09-10 17:05] LABS: A/G RATIO 0.8; ALANINE AMINOTRANSFERASE,ALT 17 U/L (14-59); ALBUMIN 3.5 g/dL (3.4-5.0); ALKALINE PHOSPHATASE 116 U/L (46-116); ANION GAP 11.5 mEq/L (7-13); ASPARTATE AMNIOTRANSFERASE,AST 16 U/L (15-37); BILIRUBIN TOTAL 0.3 mg/dL (0.2-1.0); BLOOD UREA NITROGEN,BUN 12 mg/dL (7-18); BUN/CREATININE RATIO 14.5 (No establ ref range); CALCIUM 8.9 mg/dL (8.5-10.1); CARBON DIOXIDE,CO2 26 mmol/L (21-32); CHLORIDE,CL 104 mmol/L (98-107); CREATININE 0.83 mg/dL (0.55-1.02); GLUCOSE RANDOM 91 mg/dL (70-99); POTASSIUM,K 3.5 mmol/L (3.5-5.1); PROTEIN TOTAL,TP 8.1 g/dL (6.4-8.2); SODIUM,NA 138 mmol/L (136-145)
[2023-09-10 17:06] VITALS: BP 125/80; PULSE 96
[2023-09-10 17:06] LABS: ESTIMATED GFR 100 mL/min (>=60); ETHANOL BLOOD MEDICAL < 3 mg/dL (0)
[2023-09-10] MEDS ORDERED: cefTRIAXone 2 GM Vial IVPUSH ONE (17:09)
[2023-09-10] MEDS ORDERED: Naloxone 2 MG/2 ML Syringe IM ONE (17:14)
[2023-09-10] MEDS ORDERED: Naloxone 2 MG in Sodium Chloride 0.9% 500 ML IV SCH (17:15)
[2023-09-14 15:42] LABS: C.TRACHOMATIS BY TMA Negative (Negative); M GENITALIUM Positive (Negative); M GENITALIUM SOURCE Urine; N.GONORRHOEAE BY TMA Negative (Negative); SOURCE Urine
== END 2023-09-10 18:41 ==
LOC: DL.ED 16:18
DX: T40.411A Poisoning by fentanyl or fentanyl analogs, accidental (unintentional), initial encounter (principal); F15.10 Other stimulant abuse, uncomplicated; F12.10 Cannabis abuse, uncomplicated; F16.10 Hallucinogen abuse, uncomplicated
CPT/HCPCS: 36415; 80053; 80305-QW; 80307; 81001; 81025; 85025; 87086; 87088; 87186; 87491; 87563; 87591; 96365; 96372; 96375; 96376; 99284; 99285-25; J0696; J2310; J2405; J3490; J7030; J7040